=== PATIENT | female | born 2000 | race Caucasian/White ===

== ENCOUNTER 2021-07-23 13:46 | Emergency (ER) | payer SELFPAY ==
[~2021-07-23] VITALS: Wt 74.8 kg
[2021-07-23 14:28] LABS: BASO # 0.1 10*3/uL (0.0-0.1); BASO % 0.6 % (0.0-1.0); EOS # 0.3 10*3/uL (0.0-0.4); EOS % 2.9 % (1.0-4.0); HEMATOCRIT 40.5 % (37.0-47.0); LYMPH # 3.3 10*3/uL (1.3-4.4); MEAN CELL VOLUME 86.9 fl (81.0-99.0); MEAN CORPUSCULAR HGB CONC 33.3 g/dl (33.0-37.0); MEAN PLATELET VOLUME 10.1 fl (9.6-12.3); MONO # 0.6 10*3/uL (0.1-1.0); MONO % 6.6 % (3.0-9.0); NEUT # 5.2 10*3/uL (2.3-7.9); NEUT % 54.7 % (47.0-73.0); PLATELET COUNT AUTOMATED 366 10*3/uL (130-400); RED BLOOD COUNT 4.66 10*6/uL (4.10-5.10); RED CELL DISTRI WIDTH 12.5 % (0-14.5); WHITE BLOOD COUNT 9.5 10*3/uL (4.8-10.8)
[2021-07-23 14:45] LABS: ALBUMIN 3.6 gm/dl (3.1-4.5); ALKALINE PHOSPHATASE 88 U/L (45-117); BUN 20 mg/dl (7-24); CHLORIDE 108 mmol/L (98-107); CREATININE 0.91 mg/dL (0.55-1.02); POTASSIUM 3.9 mmol/L (3.5-5.1); SGOT/AST 32 IU/L (3-35); SGPT/ALT 73 U/L (12-78); SODIUM 141 mmol/L (136-145)
[2021-07-23 14:48] LABS: ACETAMINOPHEN (TYLENOL) < 5.0 ug/ml (10-30)
[2021-07-23 14:49] LABS: B-hCG (QUALITATIVE) NEGATIVE (NEGATIVE)
[2021-07-23 14:52] LABS: ETHYL ALCOHOL < 3.0 mg/dl (<3)
[2021-07-23 14:55] LABS: BILIRUBIN Negative (Negative); BLOOD Negative (Negative); CLARITY Clear (Clear); COLOR Yellow (Yellow); GLUCOSE Negative (Negative); KETONE 1+ (Negative); LEUKO ESTERASE 2+ (Negative); NITRITE Negative (Negative); PH 6.5 (4.5-8.0); SPECIFIC GRAVITY 1.025 (1.001-1.030)
[2021-07-23 15:05] LABS: URINE AMPHETAMINES < 1000 (1000ng/ml); URINE BARBITURATES < 200 (200ng/ml); URINE BENZODIAZEPINES < 200 (200ng/ml); URINE CANNABINOIDS (THC) < 50 (50ng/ml); URINE COCAINE < 300 (300ng/ml); URINE METHADONE < 300 (300ng/ml); URINE OPIATES < 300 (300ng/ml)
[2021-07-23 15:07] LABS: RBC 0-2 rbc/hpf (0-2)
[2021-07-23 15:08] LABS: BACTERIA 4+; WBC 51-100 wbc/hpf (0-5)
[2021-07-23 15:10] LABS: URINE PHENCYCLIDINE < 25 (25ng/ml)
== END 2021-07-23 16:15 | disposition home or self-care (01) ==
LOC: ED 13:46
PROVIDERS: Physician Assistant
DX: F39 Unspecified mood [affective] disorder (principal); Z20.822 Contact with and (suspected) exposure to COVID-19; Z91.040 Latex allergy status

== ENCOUNTER → 2021-08-06 | Outpatient (CLI) | payer MEDICAID | END | disposition home or self-care (01) | LOC: RESCLI 10:37 | PROVIDERS: ATTEND Internal Medicine | DX: E66.9 Obesity, unspecified (principal); F41.9 Anxiety disorder, unspecified; F32.9 Major depressive disorder, single episode, unspecified; L68.0 Hirsutism; F95.9 Tic disorder, unspecified; N92.6 Irregular menstruation, unspecified; Z79.899 Other long term (current) drug therapy; Z98.890 Other specified postprocedural states ==

== ENCOUNTER 2021-12-04 07:06 | Emergency (ER) | payer OTHER ==
[~2021-12-04] VITALS: Ht 162.5 cm; Wt 113.4 kg
[2021-12-04 07:26] LABS: BILIRUBIN Negative (Negative); BLOOD Negative (Negative); CLARITY Clear (Clear); COLOR Yellow (Yellow); GLUCOSE Negative (Negative); KETONE Negative (Negative); LEUKO ESTERASE 1+ (Negative); NITRITE Negative (Negative); PH 5.5 (4.5-8.0); SPECIFIC GRAVITY 1.025 (1.001-1.030); UROBILINOGEN 0.2 E.U./dl (0.0-1.0)
[2021-12-04 07:37] LABS: BASO # 0.1 10*3/uL (0.0-0.1); BASO % 0.8 % (0.0-1.0); EOS # 0.3 10*3/uL (0.0-0.4); EOS % 2.6 % (1.0-4.0); HEMATOCRIT 44.4 % (37.0-47.0); LYMPH # 4.1 10*3/uL (1.3-4.4); LYMPH % 35.7 % (27.0-41.0); MEAN CELL VOLUME 85.1 fl (81.0-99.0); MEAN CORPUSCULAR HGB 28.5 pg (27.0-31.0); MEAN CORPUSCULAR HGB CONC 33.6 g/dl (33.0-37.0); MONO # 0.8 10*3/uL (0.1-1.0); NEUT # 6.2 10*3/uL (2.3-7.9); NEUT % 53.7 % (47.0-73.0); PLATELET COUNT AUTOMATED 419 10*3/uL (130-400); RED BLOOD COUNT 5.22 10*6/uL (4.10-5.10); RED CELL DISTRI WIDTH 12.2 % (0-14.5); WHITE BLOOD COUNT 11.5 10*3/uL (4.8-10.8)
[2021-12-04 07:38] LABS: BACTERIA 2+
[2021-12-04 07:39] LABS: URINE AMPHETAMINES < 1000 (1000ng/ml); URINE BARBITURATES < 200 (200ng/ml); URINE BENZODIAZEPINES < 200 (200ng/ml); URINE CANNABINOIDS (THC) < 50 (50ng/ml); URINE COCAINE < 300 (300ng/ml); URINE METHADONE < 300 (300ng/ml); URINE OPIATES < 300 (300ng/ml)
[2021-12-04 07:46] LABS: URINE PHENCYCLIDINE < 25 (25ng/ml)
[2021-12-04 08:02] LABS: ALKALINE PHOSPHATASE 101 U/L (45-117); BUN 17 mg/dl (7-24); CHLORIDE 108 mmol/L (98-107); CREATININE 0.89 mg/dL (0.55-1.02); POTASSIUM 3.7 mmol/L (3.5-5.1); SGOT/AST 13 IU/L (3-35); SGPT/ALT 28 U/L (12-78); SODIUM 139 mmol/L (136-145); TOTAL PROTEIN 7.5 gm/dL (6.4-8.2)
[2021-12-04 08:03] LABS: ACETAMINOPHEN (TYLENOL) < 5.0 ug/ml (10-30); ETHYL ALCOHOL < 3.0 mg/dl (<3)
== END 2021-12-04 16:06 ==
LOC: ED 07:06
PROVIDERS: Emergency Medicine
DX: F39 Unspecified mood [affective] disorder (principal); Z20.822 Contact with and (suspected) exposure to COVID-19

== ENCOUNTER 2022-07-08 09:19 | Emergency (ER) | payer OTHER ==
[~2022-07-08] VITALS: Ht 157.4 cm; Wt 117.9 kg
[2022-07-08 09:58] LABS: BASO # 0.1 10*3/uL (0.0-0.1); BASO % 0.6 % (0.0-1.0); EOS # 0.2 10*3/uL (0.0-0.4); EOS % 1.9 % (1.0-4.0); HEMATOCRIT 44.6 % (37.0-47.0); LYMPH # 2.8 10*3/uL (1.3-4.4); LYMPH % 31.6 % (27.0-41.0); MEAN CELL VOLUME 84.5 fl (81.0-99.0); MEAN CORPUSCULAR HGB 28.6 pg (27.0-31.0); MEAN CORPUSCULAR HGB CONC 33.9 g/dl (33.0-37.0); MEAN PLATELET VOLUME 9.9 fl (9.6-12.3); MONO # 0.5 10*3/uL (0.1-1.0); MONO % 5.6 % (3.0-9.0); NEUT # 5.3 10*3/uL (2.3-7.9); NEUT % 60.2 % (47.0-73.0); PLATELET COUNT AUTOMATED 422 10*3/uL (130-400); RED BLOOD COUNT 5.28 10*6/uL (4.10-5.10); WHITE BLOOD COUNT 8.7 10*3/uL (4.8-10.8)
[2022-07-08 10:18] LABS: ALKALINE PHOSPHATASE 100 U/L (45-117); B-hCG (QUALITATIVE) NEGATIVE (NEGATIVE); BUN 13 mg/dl (7-24); CHLORIDE 110 mmol/L (98-107); CREATININE 0.78 mg/dL (0.55-1.02); LIPASE 112 U/L (73-393); POTASSIUM 3.4 mmol/L (3.5-5.1); SGOT/AST 20 IU/L (3-35); SGPT/ALT 44 U/L (12-78); SODIUM 140 mmol/L (136-145); TOTAL PROTEIN 7.2 gm/dL (6.4-8.2)
[2022-07-08 10:20] LABS: ACT PARTIAL THROMBO TIME 29.4 SECONDS (20.0-32.1)
[2022-07-08 10:37] LABS: BILIRUBIN Negative (Negative); BLOOD Negative (Negative); CLARITY Clear (Clear); COLOR Yellow (Yellow); GLUCOSE Negative (Negative); KETONE Negative (Negative); LEUKO ESTERASE 1+ (Negative); NITRITE Negative (Negative); SPECIFIC GRAVITY 1.025 (1.001-1.030)
[2022-07-08 10:55] LABS: BACTERIA 2+; MUCOUS 2+
[2022-07-08] MEDS ORDERED: CEPHALEXIN500 M1 PO (13:02)
[2022-07-08] MEDS ORDERED: DIFLUCAN150 MG PO (13:02)
== END 2022-07-08 13:26 | disposition home or self-care (01) ==
LOC: ED 09:19
PROVIDERS: Family Medicine
DX: N39.0 Urinary tract infection, site not specified (principal); Z20.822 Contact with and (suspected) exposure to COVID-19

== ENCOUNTER 2023-09-17 17:36 | Emergency (ER) | payer MEDICAID ==
[~2023-09-17] VITALS: Ht 157.4 cm; Wt 117.9 kg
[~2023-09-17 17:36] MED LIST: CEPHALEXIN500 M1 PO; DIFLUCAN150 MG PO
[2023-09-17] MEDS ORDERED: ONDANSETRON4 MG SL (21:37)
[2023-09-17] MEDS ORDERED: Meclizine25 MG PO (21:37)
== END 2023-09-17 21:43 | disposition home or self-care (01) ==
LOC: ED 17:36
DX: R42 Dizziness and giddiness (principal); Z20.822 Contact with and (suspected) exposure to COVID-19; J06.9 Acute upper respiratory infection, unspecified; M54.9 Dorsalgia, unspecified; Z79.2 Long term (current) use of antibiotics; Z79.899 Other long term (current) drug therapy

== ENCOUNTER 2023-12-23 13:01 | Emergency (ER) | payer MEDICAID ==
[~2023-12-23] VITALS: Ht 157.4 cm; Wt 121.6 kg
[~2023-12-23 13:01] MED LIST changes: +Meclizine25 MG PO; +ONDANSETRON4 MG SL
[2023-12-23 13:53] LABS: EOS % 0.6 % (1.0-4.0); HEMATOCRIT 44.5 % (37.0-47.0); LYMPH # 3.4 10*3/uL (1.3-4.4); LYMPH % 46.6 % (27.0-41.0); MEAN CELL VOLUME 88.5 fl (81.0-99.0); MEAN CORPUSCULAR HGB 28.4 pg (27.0-31.0); MEAN CORPUSCULAR HGB CONC 32.1 g/dl (33.0-37.0); MEAN PLATELET VOLUME 9.7 fl (9.6-12.3); MONO # 0.5 10*3/uL (0.1-1.0); MONO % 6.9 % (3.0-9.0); NEUT # 3.3 10*3/uL (2.3-7.9); NEUT % 45.8 % (47.0-73.0); PLATELET COUNT AUTOMATED 338 10*3/uL (130-400); RED BLOOD COUNT 5.03 10*6/uL (4.10-5.10); RED CELL DISTRI WIDTH 12.3 % (0-14.5); WHITE BLOOD COUNT 7.2 10*3/uL (4.8-10.8)
[2023-12-23 14:04] LABS: BILIRUBIN Negative (Negative); BLOOD Negative (Negative); CLARITY Clear (Clear); COLOR Yellow (Yellow); GLUCOSE Negative (Negative); KETONE Negative (Negative); LEUKO ESTERASE 1+ (Negative); NITRITE Negative (Negative); PH 5.5 (4.5-8.0); SPECIFIC GRAVITY 1.025 (1.001-1.030)
[2023-12-23 14:13] LABS: BUN 10 mg/dl (9-23); CHLORIDE 110 mmol/L (98-107); POTASSIUM 3.8 mmol/L (3.4-5.1)
[2023-12-23 14:29] LABS: BACTERIA 2+
[2023-12-23] MEDS ORDERED: DRAMAMINE PO (14:53)
== END 2023-12-23 14:57 | disposition home or self-care (01) ==
LOC: ED 13:01
PROVIDERS: Physician Assistant Medical
DX: R42 Dizziness and giddiness (principal); F32.A Depression, unspecified; F41.9 Anxiety disorder, unspecified; Z88.8 Allergy status to other drugs, medicaments and biological substances; Z79.899 Other long term (current) drug therapy

== ENCOUNTER 2024-01-22 23:23 | Emergency (ER) | payer MEDICAID ==
[~2024-01-22] VITALS: Ht 157.4 cm; Wt 121.6 kg
[~2024-01-22 23:23] MED LIST changes: +DRAMAMINE PO
[2024-01-22] MEDS ORDERED: OLANZAPINE20 M2 PO (23:32)
[2024-01-22] MEDS ORDERED: CITALOPRAM10 MG PO (23:33)
[2024-01-22] MEDS ORDERED: CLONAZEPAM1 MG PO (23:33)
[2024-01-22] MEDS ORDERED: TRAZODONE100 MG PO (23:34)
[2024-01-22] MEDS ORDERED: PRAZOSIN HYDROCH1 MG PO (23:34)
[2024-01-23 00:32] LABS: BILIRUBIN Negative (Negative); BLOOD Negative (Negative); CLARITY Cloudy (Clear); COLOR Yellow (Yellow); GLUCOSE Negative (Negative); KETONE Negative (Negative); LEUKO ESTERASE 1+ (Negative); NITRITE Negative (Negative); SPECIFIC GRAVITY >= 1.030 (1.001-1.030); UROBILINOGEN 0.2 E.U./dl (0.0-1.0)
[2024-01-23 00:48] LABS: EPITHELIAL CELLS 16-20
[2024-01-23] MEDS ORDERED: Ciprofloxacin Hydrochloride 500 MG TAB PO ONE (01:10)
[2024-01-23] MEDS ORDERED: MIRALAX POWDER17 G1 PO (03:16)
[2024-01-23] MEDS ORDERED: CIPRO500 MG PO (03:16)
== END 2024-01-23 03:20 | disposition home or self-care (01) ==
LOC: ED 23:23
PROVIDERS: Internal Medicine
DX: N39.0 Urinary tract infection, site not specified (principal); K59.00 Constipation, unspecified; F41.9 Anxiety disorder, unspecified; F32.A Depression, unspecified

== ENCOUNTER → 2024-11-04 | Outpatient (CLI) | payer MEDICAID ==
[~2024-11-04] MED LIST changes: +AVPAK AZITHROM250 MG PO; +CIPRO500 MG PO; +CITALOPRAM10 MG PO; +CLONAZEPAM1 MG PO; +MELOXICAM15 MG PO; +MIRALAX POWDER17 G1 PO; +OLANZAPINE20 M2 PO; +PRAZOSIN HYDROCH1 MG PO; +TRAZODONE100 MG PO
== END | disposition home or self-care (01) ==
LOC: RAD 17:28
PROVIDERS: ATTEND Internal Medicine
DX: R06.02 Shortness of breath (principal); R09.89 Other specified symptoms and signs involving the circulatory and respiratory systems; R05.9 Cough, unspecified; R50.9 Fever, unspecified

== ENCOUNTER 2024-11-05 22:42 | Emergency (ER) | payer MEDICAID ==
[~2024-11-05] VITALS: Ht 157.4 cm; Wt 118.8 kg
[~2024-11-05 22:42] MED LIST changes: -AVPAK AZITHROM250 MG PO; -MELOXICAM15 MG PO
[2024-11-05] MEDS ORDERED: Ketorolac Tromethamine 15 MG/ML VIAL IM ONE (23:15)
[2024-11-06] MEDS ORDERED: AVPAK AZITHROM250 MG PO (00:15)
[2024-11-06] MEDS ORDERED: MELOXICAM15 MG PO (00:15)
== END 2024-11-06 00:37 | disposition home or self-care (01) ==
LOC: ED 22:42
DX: J40 Bronchitis, not specified as acute or chronic (principal); Z20.822 Contact with and (suspected) exposure to COVID-19; R11.2 Nausea with vomiting, unspecified; F41.9 Anxiety disorder, unspecified; F32.A Depression, unspecified

== ENCOUNTER → 2024-12-24 | Outpatient (CLI) | payer MEDICAID ==
[~2024-12-24] MED LIST changes: +AVPAK AZITHROM250 MG PO; +MELOXICAM15 MG PO
== END | disposition home or self-care (01) ==
LOC: US 01:13
PROVIDERS: ATTEND Nurse Practitioner Women's Health
DX: N94.6 Dysmenorrhea, unspecified (principal); N92.1 Excessive and frequent menstruation with irregular cycle